=== PATIENT | male | born 1960 | race Caucasian/White ===

== ENCOUNTER → 2019-01-31 | Outpatient (CLI) | payer OTHER ==
--- NOTE | 2019-01-31 15:14 | RAD ---
Study: CT maxillofacial without contrast INDICATION: Chronic sinusitis. COMPARISON: None. TECHNIQUE: Axial CT imaging of the maxillofacial structures performed without the use of intravenous contrast. Coronal and sagittal reformats were obtained. One or more of the following individualized dose reduction techniques were utilized for this examination: 1. Automated exposure control 2. Adjustment of the mA and/or kV according to patient size 3. Use of iterative reconstruction technique. FINDINGS: Bones: The mastoid air cells are normally opacified. No layering fluid seen within the paranasal sinuses. Trace left more so than right maxillary sinus mucosal thickening. Symmetric size of the turbinates. No mucoperiosteal thickening along the paranasal sinuses to suggest chronic sinusitis. The visualized calvarium is unremarkable as is the skull base. Normal bony orbits. Temporomandibular joint alignment is maintained. Degenerative changes of the partially visualized cervical spine with discogenic arthrosis most pronounced at C6-C7. Multilevel facet degeneration as well as uncovertebral joint hypertrophy. Bony neural foraminal encroachment at multiple levels but most pronounced at C6-C7 particularly on the right. Soft tissues: No inflammatory changes seen to involve the facial soft tissues. Unremarkable submandibular and parotid glands. The deep spaces of the neck are unremarkable. No adenopathy. IMPRESSION: 1. No CT manifestations of acute or chronic sinusitis. 2. Partially evaluated cervical spine degenerative changes which are most pronounced at C6-C7 where there is right more so than left neural foraminal stenosis Electronically signed by: PASCUAL ESTRADA MD (01/31/2019 3:12 PM) [facility]
== END | disposition home or self-care (01) ==
LOC: CT 08:51
PROVIDERS: ATTEND Physician Assistant
DX: J32.9 Chronic sinusitis, unspecified (principal); M89.38 Hypertrophy of bone, other site; M47.812 Spondylosis without myelopathy or radiculopathy, cervical region
CPT/HCPCS: 70486

== ENCOUNTER → 2020-10-05 | Outpatient (CLI) | payer OTHER ==
--- NOTE | 2020-10-05 10:15 | RAD ---
XR SHOULDER_RIGHT 2+ VIEWS 10/05/2020 10:02 AM INDICATION: Right shoulder pain COMPARISON: None available. TECHNIQUE: 3 views of the right shoulder are provided. FINDINGS/ IMPRESSION: There is no acute fracture or dislocation. Mild glenohumeral osteoarthrosis with joint space narrowin g marginal osteophytosis. Bone mineralization is within normal limits. Regional soft tissues are with in normal limits. There is no soft tissue gas or osseous erosion. No radiopaque foreign body. Electronically signed by: Marisel Knox MD (10/05/2020 10:13 AM) [id number]
== END ==
LOC: RAD 09:03
PROVIDERS: ATTEND Physician Assistant
DX: M19.011 Primary osteoarthritis, right shoulder (principal)
CPT/HCPCS: 73030

== ENCOUNTER → 2020-10-07 | Outpatient (CLI) | payer OTHER ==
--- NOTE | 2020-10-07 15:05 | RAD ---
EXAM: Cervical spine, 5 views. HISTORY: Radiculopathy. COMPARISON: None. FINDINGS: 5 views of the cervical spine are obtained. There is minimal anterolisthesis of C5 on C6. T here is multilevel degenerative endplate remodeling, primarily at C6-C7. There is associated disc spa ce narrowing at this level. There is multilevel facet arthropathy and lateral foraminal stenosis. IMPRESSION: 1. Multilevel degenerative change, predominantly at C6-C7. There is associated foraminal stenosis at multiple levels. 2. No acute osseous finding. Electronically signed by: Niki Serrano MD (10/07/2020 3:02 PM) [id number]
== END ==
LOC: RAD 14:41
PROVIDERS: ATTEND Physician Assistant Medical
DX: M47.22 Other spondylosis with radiculopathy, cervical region (principal); M48.02 Spinal stenosis, cervical region
CPT/HCPCS: 72050